=== PATIENT | female | born 1985 | race Caucasian/White ===

== ENCOUNTER 2017-07-27 14:17 | Emergency (ER) | payer SELFPAY ==
[~2017-07-27] VITALS: Ht 160 cm; Wt 50.8 kg
[~2017-07-27 14:17] MED LIST: AMOXICILLIN500 MG PO; DIFLUCAN150 MG PO; HYDROCODONE BIT1 T11 PO; KEFLEX500 MG PO; MOTRIN600 MG PO; Motrin,Rufen800 MG PO; PENICILLIN VK500 MG PO; PHENERGAN25 M1 PO; ULTRAM50 MG PO; VICODIN 5/500 505 MG PO; ZITHROMAX250 MG PO
[2017-07-27] MEDS ORDERED: PREDNISONE50 MG PO (15:43)
[2017-07-27] MEDS ORDERED: EASIVENT CHAMBE1 KIT INH (15:43)
[2017-07-27] MEDS ORDERED: PROAIR HFA8.5 GM INH (15:43)
[2017-07-27] MEDS ORDERED: AVPAK AZITHROM250 M1 PO (15:43)
== END 2017-07-27 15:47 | disposition home or self-care (01) ==
LOC: ED 14:17
DX: J18.9 Pneumonia, unspecified organism (principal); J20.9 Acute bronchitis, unspecified; J45.909 Unspecified asthma, uncomplicated

== ENCOUNTER 2017-11-11 13:12 | Emergency (ER) | payer SELFPAY ==
[~2017-11-11] VITALS: Ht 160 cm; Wt 52.2 kg
[~2017-11-11 13:12] MED LIST changes: +AVPAK AZITHROM250 M1 PO; +EASIVENT CHAMBE1 KIT INH; +PREDNISONE50 MG PO; +PROAIR HFA8.5 GM INH
== END 2017-11-11 16:47 | disposition home or self-care (01) ==
LOC: ED 13:12
DX: S20.211A Contusion of right front wall of thorax, initial encounter (principal); S00.83XA Contusion of other part of head, initial encounter; S09.90XA Unspecified injury of head, initial encounter; Z79.899 Other long term (current) drug therapy; Y04.0XXA Assault by unarmed brawl or fight, initial encounter; Y93.89 Activity, other specified; Y92.099 Unspecified place in other non-institutional residence as the place of occurrence of the external cause; Y99.9 Unspecified external cause status

== ENCOUNTER 2024-05-09 22:01 | Emergency (ER) | payer SELFPAY ==
[~2024-05-09] VITALS: Ht 160 cm; Wt 49.9 kg
[2024-05-09] MEDS ORDERED: LORazepam 1 MG TAB PO ONE (22:30)
[2024-05-09 22:44] LABS: BASO # 0.1 10*3/uL (0.0-0.1); BASO % 1.1 % (0.0-1.0); EOS # 0.6 10*3/uL (0.0-0.4); HEMATOCRIT 40.5 % (37.0-47.0); MEAN CELL VOLUME 86.2 fl (81.0-99.0); MEAN CORPUSCULAR HGB 28.9 pg (27.0-31.0); MEAN CORPUSCULAR HGB CONC 33.6 g/dl (33.0-37.0); MEAN PLATELET VOLUME 10.2 fl (9.6-12.3); MONO # 0.4 10*3/uL (0.1-1.0); MONO % 5.5 % (3.0-9.0); NEUT # 3.9 10*3/uL (2.3-7.9); NEUT % 54.8 % (47.0-73.0); PLATELET COUNT AUTOMATED 302 10*3/uL (130-400); RED CELL DISTRI WIDTH 12.8 % (0-14.5); WHITE BLOOD COUNT 7.2 10*3/uL (4.8-10.8)
[2024-05-09 23:06] LABS: BUN 6 mg/dl (9-23); CHLORIDE 105 mmol/L (98-107); POTASSIUM 3.4 mmol/L (3.4-5.1)
[2024-05-10] MEDS ORDERED: VISTARIL25 MG PO (00:43)
== END 2024-05-10 01:50 | disposition home or self-care (01) ==
LOC: ED 22:01
PROVIDERS: Internal Medicine
DX: F41.9 Anxiety disorder, unspecified (principal); M79.602 Pain in left arm; R07.89 Other chest pain; J45.909 Unspecified asthma, uncomplicated